=== PATIENT | female | born 1975 | race Two or more races ===

== ENCOUNTER 2025-01-22 14:54 | Emergency (ER) | payer MEDICAID, SELFPAY ==
[2025-01-22 15:01] VITALS: BP 133/73; PULSE 88; RESP 18; TEMP 36.9; O2SAT 99
--- NOTE | 2025-01-22 15:17 | EKG_ITS ---
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
--- NOTE | 2025-01-22 15:17 | XR_ITS ---
Examination: AP chest single view Technique one AP portable upright chest single view Exam date and time: January 22, 2025 1548 hours INDICATIONS: Chest pain beginning 2 days ago. FINDINGS: Normal heart size. Lungs are clear. The osseous structures are intact IMPRESSION: No active disease
[2025-01-22 15:30] VITALS: O2SAT 97; BMI 34.2
--- NOTE | 2025-01-22 15:51 | PD.EDDIZZY ---
ED Dizzyness RME/HPI General Chief Complaint: Syncope / Near Syncope Stated Complaint: SYNCOPE Time Seen by Provider: 01/22/25 15:16 Arrival date/time: 01/22/25 14:54 Limitations: no limitations RME / HPI RME / HPI Narrative: 49 year old female with history of hypertension and diabetes presents to the ED BIBA from work for evaluation of dizziness today. 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 States she sat on a chair and felt very faint. Patient additionally complains of her mouth feeling very dry. Per medics, prehospital BS 263 and was given IV fluids en route. While in the ED no other associated symptoms or complaints reported. Denies fevers, chills, chest pain, cough, shortness of breath, abdominal pain, n/v/d, or urinary symptoms. Patient also reports she has not taken her Metformin for 3 days. Related Data Home Medications ?Medication ?Instructions ?Recorded ?Confirmed amlodipine 10 mg tablet 10 mg PO QDAY 04/11/21 04/15/22 empagliflozin 25 mg tablet 25 mg PO QDAY 04/11/21 04/15/22 (Jardiance) ferrous sulfate 325 mg (65 mg 325 mg PO QDAY 04/11/21 04/15/22 iron) tablet sitagliptin phosphate 50 1 tab PO BID 04/11/21 04/15/22 mg-metformin 1,000 mg tablet (Janumet) Previous Rx's ?Medication ?Instructions ?Recorded tramadol 50 mg tablet 50 mg PO TID PRN pain #20 tabs 04/15/22 cyclobenzaprine 5 mg tablet 5 mg PO QHSPRN PRN muscle spasm 02/01/23 #10 tabs ibuprofen 600 mg tablet 600 mg PO TID PRN pain #30 tabs 02/01/23 albuterol sulfate 90 mcg/actuation 2 puff inhalation Q6H PRN 09/11/23 aerosol inhaler (Ventolin HFA) shortness of breath or wheezing #8.5 grams benzonatate 100 mg capsule 100 mg PO TID #14 caps 09/11/23 cyclobenzaprine 10 mg tablet 10 mg PO TID PRN muscle spasm #10 07/28/24 tabs ibuprofen 600 mg tablet 600 mg PO Q8H PRN pain #20 tabs 07/28/24 Allergies Allergy/AdvReac Type Severity Reaction Status Date / Time Penicillins Allergy Severe HIVES Verified 06/10/24 07:35 Review of Systems Review of Systems Systems Reviewed: All systems reviewed, normal except as documented Past Medical History Past Medical History CARDIAC: Positive Hypertension ENDOCRINE: Positive Endocrine Disorders and Diabetes Mellitus Type 2 OTHER HISTORY: Positive Blood Transfusions Surgical History SURGICAL: Positive Section Social History SMOKING STATUS: Never smoker SUBSTANCE USE: does not use ED Exam General Limitations: Present no limitations General appearance: Present alert and in no apparent distress Head Head exam: Present atraumatic, normocephalic and normal inspection Eye Eye exam: Present normal appearance, PERRL and EOMI ENT ENT exam: Present normal exam, normal oropharynx and mucous membranes moist Neck Neck exam: Present normal inspection, full ROM and trachea midline Chest Chest inspection: Present normal inspection and symmetric chest wall rise Respiratory Respiratory exam: Present normal lung sounds bilaterally Cardiovascular Cardiovascular exam: Present regular rate, normal rhythm and normal heart sounds Abdominal Exam Abdominal exam: Present soft and normal bowel sounds Extremities Exam Extremities exam: Present normal inspection and full ROM Back Exam Back exam: Present normal inspection and full ROM Neurological Exam Neurological exam: Present alert, oriented X3 and CN II-XII intact Psychiatric Psychiatric exam: Present normal affect and normal mood Skin Skin exam: Present warm, dry, intact and normal color Course Quality Measures none Orders Category Date Time Status Lead Software Tester STAT Care 01/22/25 15:17 Active Continuous Pulse Oximetry ONCE Care 01/22/25 15:17 Completed EKG (ED ONLY) *Do not use* NOW Care 01/22/25 15:17 Completed Insert IV STAT Care 01/22/25 15:17 Active EKG (ED Only) Stat Exams 01/22/25 15:17 Draft XR chest 1V portable Stat Exams 01/22/25 15:17 Completed B-Type Natriuretic Peptide Stat Lab 01/22/25 15:46 Completed Beta Hydroxybutyrate Stat Lab 01/22/25 15:46 Completed CBC Stat Lab 01/22/25 15:46 Completed Comprehensive Metabolic Panel Stat Lab 01/22/25 15:46 Completed Troponin I Stat Lab 01/22/25 15:46 Completed Sodium Chloride 0.9% 1000 ml [Ns] 1,000 ml Med 01/22/25 15:17 Discontinued IV 999 mls/hr Reevaluation(s) Reevaluation #1: Feeling much better, smiling and giggling. We reviewed all the results, analysis, and treatment plans. Patient is amenable to discharge. Strict return precautions were outlined. Patient was discharged in stable condition. Time: 18:00 Vital Signs Vital signs: Vital Signs Temperature 98.4 F 01/22/25 15:01 Pulse Rate 88 01/22/25 15:01 Respiratory Rate 18 01/22/25 15:01 Blood Pressure 133/73 H 01/22/25 15:01 Pulse Oximetry (%) 99 01/22/25 15:01 Oxygen Delivery Method Room Air 01/22/25 15:01 Pulse ox is 99% on room air which is adequate. Dizziness MDM Narrative MDM Narrative:: Opal Rizvi am scribing for and in the presence of Dr. Noel. Patient data External records reviewed:: [facility] previous records and EMS form Clinical information provided by:: patient and EMS Social determinants that could affect healthcare access:: none Patient has the following chronic illnesses:: HTN, DM How is presenting disease/condition affected by chronic disease/condition?: exacerbated by Evaluation data The following diagnostics were reviewed and interpreted by me:: lab results, radiology exam(s) and EKG tracing(s) (EKG @ 15:37. Sinus rhythm, rate 93, no acute ischemic changes, no STEMI. ) Lab and/or radiology exams considered but not ordered:: None Interpretation Summary: Ordering Physician: Fredrick Noel MD Date of Service: 01/22/25 Procedure(s): XR chest 1V portable Accession Number(s): [id number] cc: Fredrick Noel MD; Santana Villar MD~ Examination: AP chest single view Technique one AP portable upright chest single view Exam date and time: January 22, 2025 1548 hours INDICATIONS: Chest pain beginning 2 days ago. FINDINGS: Normal heart size. Lungs are clear. The osseous structures are intact IMPRESSION: No active disease Dictated By: Santana Villar MD Signed By: <Electronically signed by Santana Villar MD in OV> 01/22/25 5862 Medications / Prescriptions Medications or Prescriptions considered but not ordered:: None Medication administrations:: Medication Administration History Discontinued Medications Sodium Chloride (Ns) 1,000 mls @ 999 mls/hr IV .Q1H1M ONE Stop: 01/22/25 16:17 Last Admin: 01/22/25 16:04 Dose: 999 mls/hr Documented By: DO See above Consultations Consultation(s) initiated? (list below): No Diagnosis Dizziness Differential Diagnosis: benign paroxysmal positional vertigo, orthostatic hypotension and other (syncope, dehydration) Most likely diagnosis given after review of the tests above:: Dehydration Admission Indicated Admission indicated?: not indicated Admission Request Was there a request for admission?: No Disposition Plan Disposition Plan: Discharge Discharge Attestation Discharge Attestation: The patient and all family members were given an opportunity to ask questions and understood the discharge instructions. Discharge instructions specifically effects, indications for sooner follow up or return to the emergency department, and the expected course of current diagnosis. Patient condition: Stable Discharge Plan Plan Patient Disposition: HOME (Self Care) Prescriptions/Referrals Prescriptions/Med Rec: No Action amlodipine 10 mg Tablet 10 mg PO QDAY ferrous sulfate 325 mg (65 mg iron) Tablet 325 mg PO QDAY Janumet 50-1,000 mg Tablet 1 tab PO BID Jardiance 25 mg Tablet 25 mg PO QDAY tramadol 50 mg tablet 50 mg PO TID PRN (Reason: pain) Qty: 20 0RF ibuprofen 600 mg tablet 600 mg PO TID PRN (Reason: pain) Qty: 30 0RF cyclobenzaprine 5 mg tablet 5 mg PO QHSPRN PRN (Reason: muscle spasm) Qty: 10 0RF cyclobenzaprine 10 mg tablet 10 mg PO TID PRN (Reason: muscle spasm) Qty: 10 0RF ibuprofen 600 mg tablet 600 mg PO Q8H PRN (Reason: pain) Qty: 20 0RF benzonatate 100 mg capsule 100 mg PO TID Qty: 14 0RF albuterol sulfate [Ventolin HFA] 90 mcg/actuation HFA aerosol inhaler 2 puff inhalation Q6H PRN (Reason: shortness of breath or wheezing) Qty: 8.5 0RF Referrals: Bhargav Galindo MD [Primary Care Provider] - In 1 week Problem List Clinical Impression: Dehydration Patient/Caregiver Discharge Instructions Education Materials: ED Dehydration (Adult) Additional Instructions: Drink plenty of fluids. Follow up with your doctor as needed. Print Language: Irish Stand Alone Forms: Erika Award Info., Patient Portal Info Letter
[2025-01-22 15:53] LABS: Basophils % (Auto) 1 % (0-2.5); Eosinophils # (Auto) 0.1 Thou/mm3 (0.0-0.5); Eosinophils % (Auto) 1 % (0-10); Hematocrit 29.3 % (36.0-46.0); Immature Granulocytes % (Auto) 0 % (0-0); Immature Granulocytes Auto 0.01 Thou/mm3 (0.00-0.00); Lymphocytes # (Auto) 1.5 Thou/mm3 (1.0-4.8); Lymphocytes % (Auto) 27 % (10-50); Mean Corpuscular HGB Conc 30.7 g/dl (31.0-37.0); Mean Corpuscular Hemoglobin 20.3 pg (25.0-35.0); Mean Corpuscular Volume 66 fL (80-100); Monocytes # (Auto) 0.4 Thou/mm3 (0.0-0.8); Monocytes % (Auto) 7 % (0-12); Neutrophils # (Auto) 3.6 Thou/mm3 (1.8-7.7); Neutrophils % (Auto) 64 % (37-80); Nucleated Red Blood Cell % 0 /100 WBC (0); Platelet Count 334 Thou/mm3 (140-440); RDW Standard Deviation 45.1 fL (36.4-46.3); Red Blood Count 4.43 Miln/mm3 (4.00-5.20); White Blood Count 5.7 Thou/mm3 (3.6-11.0)
[2025-01-22] MEDS: SODIUM CHLORIDE 0.9% 1000 ML 1,000 ML 999 ML IV (16:04)
[2025-01-22 16:16] LABS: B-Type Natriuretic Peptide < 20 pg/mL (0-100)
[2025-01-22 16:17] LABS: Alanine Aminotransferase 22 U/L (10-49); Albumin, Serum 3.8 gm/dL (3.5-5.0); Albumin/Globulin Ratio 1.4 (1.2-2.2); Alkaline Phosphatase 158 U/L (46-116); Anion Gap 9 (7-16); Aspartate Amino Transferase 32 U/L (0-34); BUN/Creatinine Ratio 22 Ratio (12-20); Bilirubin,Total 0.3 mg/dL (0.3-1.2); Blood Urea Nitrogen 13 mg/dL (9-23); Calcium 8.2 mg/dL (8.3-10.6); Calcium (Corrected) 8.4 mg/dL (8.5-10.1); Carbon Dioxide 26.8 mMol/L (20.0-31.0); Chloride 108 mMol/L (98-107); Creatinine (Component) 0.6 mg/dL (0.6-1.3); Estimated Creatinine Clearance 108.1 mL/min (>60); Globulin 2.8 gm/dL (2.3-3.5); Glucose 169 mg/dL (74-106); Osmolality,Calculated 290 (275-295); Potassium 3.3 mMol/L (3.4-5.1); Sodium 144 mMol/L (136-145); Total Protein 6.6 gm/dL (5.7-8.2); Troponin I < 0.020 ng/mL (0.0-0.045); eGFR > 60 See Note
[2025-01-22 16:26] VITALS: BP 152/80; PULSE 82; RESP 14; TEMP 36.5; O2SAT 100
[2025-01-22 18:11] VITALS: BP 144/81; PULSE 75; RESP 18; TEMP 36.6; O2SAT 100
== END 2025-01-22 19:02 | disposition home or self-care (01) ==
PROVIDERS: Emergency Provider Emergency Medicine; PCP Family Medicine
DX: E86.0 Dehydration (principal); E11.9 Type 2 diabetes mellitus without complications; I10 Essential (primary) hypertension; R42 Dizziness and giddiness; R07.9 Chest pain, unspecified
CPT/HCPCS: 36415; 71045; 80053; 82010; 83880; 84484; 85025; 93005; 99284; J7030

== ENCOUNTER 2025-07-05 07:23 | Emergency (ER) | payer MEDICAID, SELFPAY ==
[2025-07-05 07:42] VITALS: BP 158/88; PULSE 88; RESP 18; TEMP 36.9; O2SAT 98; BMI 28.3
--- NOTE | 2025-07-05 07:48 | XR_ITS ---
EXAMINATION: Lumbar spine 3 views TECHNIQUE: AP lateral, lateral lower lumbar spine 3 views Date and time: July 05, 2025, 0819 hours INDICATIONS: Lifting injury 3 days ago with back pain radiating to the legs FINDINGS: Adequate alignment lumbar vertebral bodies. No lumbar fracture No significant lumbar disc narrowing No spondylolisthesis IMPRESSION: No lumbar fracture No significant lumbar disc narrowing
--- NOTE | 2025-07-05 07:50 | PD.EDBACK ---
ED Back Injury Pain RME/HPI General Stated Complaint: BACK PAIN SINCE SATURDAY, HX SCIATICA Time Seen by Provider: 07/05/25 07:30 Source: patient Arrival date/time: 07/05/25 07:23 49-year-old female with a history of hypertension, type 2 diabetes, sciatica presents to the emergency room with a chief complaint of lumbar back pain x 2 days Mode of arrival: ambulatory Limitations: no limitations Related Data Home Medications ?Medication ?Instructions ?Recorded ?Confirmed amlodipine 10 mg tablet 10 mg PO QDAY 04/11/21 04/15/22 empagliflozin 25 mg tablet 25 mg PO QDAY 04/11/21 04/15/22 (Jardiance) ferrous sulfate 325 mg (65 mg 325 mg PO QDAY 04/11/21 04/15/22 iron) tablet sitagliptin phosphate 50 1 tab PO BID 04/11/21 04/15/22 mg-metformin 1,000 mg tablet (Janumet) Previous Rx's ?Medication ?Instructions ?Recorded tramadol 50 mg tablet 50 mg PO TID PRN pain #20 tabs 04/15/22 cyclobenzaprine 5 mg tablet 5 mg PO QHSPRN PRN muscle spasm 02/01/23 #10 tabs ibuprofen 600 mg tablet 600 mg PO TID PRN pain #30 tabs 02/01/23 albuterol sulfate 90 mcg/actuation 2 puff inhalation Q6H PRN 09/11/23 aerosol inhaler (Ventolin HFA) shortness of breath or wheezing #8.5 grams benzonatate 100 mg capsule 100 mg PO TID #14 caps 09/11/23 cyclobenzaprine 10 mg tablet 10 mg PO TID PRN muscle spasm #10 07/28/24 tabs ibuprofen 600 mg tablet 600 mg PO Q8H PRN pain #20 tabs 07/28/24 ibuprofen 800 mg tablet 800 mg PO Q8H #20 tabs 07/05/25 Allergies Allergy/AdvReac Type Severity Reaction Status Date / Time Penicillins Allergy Severe HIVES Verified 07/05/25 07:26 Review of Systems Review of Systems Systems Reviewed: All systems reviewed, normal except as documented Constitutional Constitutional: Reports system reviewed and no additional complaints, except as documented, Denies fatigue, Denies fever(s), Denies headache(s) and Denies weakness Eyes Eyes: Reports system reviewed and no additional complaints, except as documented, Denies blurry vision and Denies change in vision ENT Ears, Nose, Mouth, and Throat: Reports system reviewed and no additional complaints, except as documented, Denies otalgia, Denies headache(s), Denies nasal congestion, Denies throat swelling and Denies vertigo Cardiovascular Cardiovascular: Reports system reviewed and no additional complaints, except as documented, Denies chest pain, Denies dyspnea and Denies dyspnea on exertion Respiratory Respiratory: Reports system reviewed and no additional complaints, except as documented, Denies chest congestion, Denies cough, Denies dyspnea, Denies dyspnea on exertion and Denies wheezing Gastrointestinal Gastrointestinal: Reports system reviewed and no additional complaints, except as documented, Denies abdominal pain, Denies cramping, Denies nausea and Denies vomiting Genitourinary Genitourinary: Reports system reviewed and no additional complaints, except as documented Musculoskeletal Musculoskeletal: Reports system reviewed and no additional complaints, except as documented and Reports back pain Integumentary/Breasts Skin/Breast: Reports system reviewed and no additional complaints, except as documented and Denies wounds Neurologic Neurologic: Reports system reviewed and no additional complaints, except as documented, Denies confusion, Denies headache(s), Denies lack of coordination, Denies vertigo and Denies weakness Psychiatric Psychiatric: Reports system reviewed and no additional complaints, except as documented, Denies anxiety, Denies confusion, Denies depression, Denies paranoia, Denies suicidal ideation and Denies tactile hallucinations Endocrine Endocrine: Reports system reviewed and no additional complaints, except as documented and Denies fatigue Hematologic/Lymphatic Hematologic/Lymphatic: Reports system reviewed and no additional complaints, except as documented and Denies lymphadenopathy Allergic/Immunologic Allergic/Immunologic: Reports system reviewed and no additional complaints, except as documented, Denies throat swelling, Denies urticaria and Denies wheezing Past Medical History Past Medical History CARDIAC: Positive Hypertension; Negative Cardiac Disorders or Congestive Heart Failure RESPIRATORY: Negative Chronic Obstructive Pulmonary Disease (COPD) GASTROINTESTINAL: Negative Gastrointestinal Disorders GENITOURINARY: Negative Genitourinary Disorders or Renal Disease ENDOCRINE: Positive Endocrine Disorders and Diabetes Mellitus Type 2; Negative Diabetes Mellitus Type 1 OTHER HISTORY: Positive Blood Transfusions Surgical History SURGICAL: Positive Section Social History SMOKING STATUS: Never smoker SUBSTANCE USE: does not use ED Exam General Limitations: Present no limitations General appearance: Present alert and in no apparent distress Head Head exam: Present atraumatic Eye Eye exam: Present normal appearance, PERRL and EOMI ENT ENT exam: Present normal exam, normal oropharynx and mucous membranes moist Neck Neck exam: Present normal inspection, full ROM and trachea midline Chest Chest inspection: Present normal inspection and symmetric chest wall rise Respiratory Respiratory exam: Present normal lung sounds bilaterally Cardiovascular Cardiovascular exam: Present regular rate, normal rhythm and normal heart sounds Abdominal Exam Abdominal exam: Present soft and normal bowel sounds Extremities Exam Extremities exam: Present normal inspection and full ROM Back Exam Back exam: Present normal inspection, full ROM and tenderness Neurological Exam Neurological exam: Present alert, oriented X3 and CN II-XII intact Psychiatric Psychiatric exam: Present normal affect and normal mood Skin Skin exam: Present warm, dry, intact and normal color Course Quality Measures none Orders Category Date Time Status XR lumbar spine 2-3V Stat Exams 07/05/25 07:48 Completed HCG Qualitative,Urine Stat Lab 07/05/25 08:10 Completed Ketorolac Inj [Toradol Inj] Med 07/05/25 07:48 Discontinued 30 mg IM X1 ONE Vital Signs Vital signs: Vital Signs Temperature 98.5 F 07/05/25 07:42 Pulse Rate 88 07/05/25 07:42 Respiratory Rate 18 07/05/25 07:42 Blood Pressure 158/88 H 07/05/25 07:42 Pulse Oximetry (%) 98 07/05/25 07:42 Oxygen Delivery Method Room Air 07/05/25 07:42 Back Pain / Injury MDM Narrative MDM Narrative:: 49-year-old female with a history of hypertension, type 2 diabetes, sciatica presents to the emergency room with a chief complaint of lumbar back pain x 2 days Patient is hemodynamically stable and in no apparent distress Physical examination shows tenderness and pain to the lumbar area over patient's spine. There is no sciatic notch tenderness. X-ray of the lumbar spine was completed and was negative for any acute fracture or dislocation or any significant lumbar disc narrowing Patient was discharged and educated to follow-up with primary care provider in the next 24 to 48 hours and return to the emergency room for any evidence of worsening signs or symptoms Patient data External records reviewed:: [facility] previous records Clinical information provided by:: patient Social determinants that could affect healthcare access:: none Patient has the following chronic illnesses:: Hypertension, type 2 diabetes How is presenting disease/condition affected by chronic disease/condition?: no chronic disease Evaluation data The following diagnostics were reviewed and interpreted by me:: lab results and radiology exam(s) Lab and/or radiology exams considered but not ordered:: Labs and radiology exams considered and ordered Interpretation Summary: X-ray lumbar-FINDINGS: Adequate alignment lumbar vertebral bodies. No lumbar fracture No significant lumbar disc narrowing No spondylolisthesis IMPRESSION: No lumbar fracture No significant lumbar disc narrowing Medications / Prescriptions Medications or Prescriptions considered but not ordered:: Medication given Medication administrations:: Medication Administration History Discontinued Medications Ketorolac Tromethamine (Ketorolac Inj 60 Mg/2 Ml Vial) 30 mg IM X1 ONE Stop: 07/05/25 07:49 Last Admin: 07/05/25 08:09 Dose: 30 mg Documented By: [facility] Medication given Consultations Consultation(s) initiated? (list below): No Diagnosis Differential diagnosis back pain/injury: lumbar radiculopathy, sciatica, strain of lumbar region and discitis Most likely diagnosis given after review of the tests above:: Sprain and strain of lumbar region Admission Indicated Admission indicated?: not indicated Admission Request Was there a request for admission?: No Disposition Plan Disposition Plan: Discharge Discharge Attestation Discharge Attestation: The patient and all family members were given an opportunity to ask questions and understood the discharge instructions. Discharge instructions specifically effects, indications for sooner follow up or return to the emergency department, and the expected course of current diagnosis. Patient condition: Stable Discharge Plan Plan Patient Disposition: HOME (Self Care) Discharge Disposition comment: Stable Prescriptions/Referrals Prescriptions/Med Rec: New ibuprofen 800 mg tablet 800 mg PO Q8H Qty: 20 0RF No Action amlodipine 10 mg Tablet 10 mg PO QDAY ferrous sulfate 325 mg (65 mg iron) Tablet 325 mg PO QDAY Janumet 50-1,000 mg Tablet 1 tab PO BID Jardiance 25 mg Tablet 25 mg PO QDAY tramadol 50 mg tablet 50 mg PO TID PRN (Reason: pain) Qty: 20 0RF ibuprofen 600 mg tablet 600 mg PO TID PRN (Reason: pain) Qty: 30 0RF cyclobenzaprine 5 mg tablet 5 mg PO QHSPRN PRN (Reason: muscle spasm) Qty: 10 0RF cyclobenzaprine 10 mg tablet 10 mg PO TID PRN (Reason: muscle spasm) Qty: 10 0RF ibuprofen 600 mg tablet 600 mg PO Q8H PRN (Reason: pain) Qty: 20 0RF benzonatate 100 mg capsule 100 mg PO TID Qty: 14 0RF albuterol sulfate [Ventolin HFA] 90 mcg/actuation HFA aerosol inhaler 2 puff inhalation Q6H PRN (Reason: shortness of breath or wheezing) Qty: 8.5 0RF Referrals: Bhargav Galindo MD [Primary Care Provider, Family Practice] - In 1 week Problem List Clinical Impression: Lumbar back sprain, Sciatica Patient/Caregiver Discharge Instructions Education Materials: ED Back Sprain/Strain, ED Sciatica Additional Instructions: Please follow-up with your primary care provider in the next 24 to 48 hours X-rays of your lumbar spine were negative for any acute fracture or dislocation For any evidence of worsening signs or symptoms return to the emergency room immediately Print Language: Jordanian Stand Alone Forms: Erika Award Info., Work/School Release, Patient Portal Info Letter PA/SALES ACCOUNT SPECIALIST Supervising Physician PA/SALES ACCOUNT SPECIALIST Supervising Physician: Dr. Nye
[2025-07-05] MEDS: KETOROLAC INJ 60 MG/2 ML VIAL 30 MG IM (08:09)
[2025-07-05 08:45] LABS: HCG Qualitative,Urine Negative
== END 2025-07-05 09:53 | disposition home or self-care (01) ==
PROVIDERS: Emergency Provider Nurse Practitioner Family; PCP Family Medicine
DX: S33.5XXA Sprain of ligaments of lumbar spine, initial encounter (principal); M54.40 Lumbago with sciatica, unspecified side; E11.9 Type 2 diabetes mellitus without complications; I10 Essential (primary) hypertension; Z79.84 Long term (current) use of oral hypoglycemic drugs; X50.0XXA Overexertion from strenuous movement or load, initial encounter
CPT/HCPCS: 72100; 81025; 96372; 99283; J1885